=== PATIENT | female | born 1950 | race Caucasian/White ===

== ENCOUNTER 2017-12-02 20:16 | Emergency (ER) | payer BC ==
[~2017-12-02] VITALS: Ht 157.5 cm; Wt 73.3 kg
[2017-12-02 21:03] LABS: HEMATOCRIT 39.2 % (36.0-46.0); HEMOGLOBIN 13.1 G/DL (11.9-15.5); MCH 28.9 PG (29.0-34.0); MCHC 33.4 G/DL (30.0-36.0); MCV 86.5 FL (83-99); PLATELET COUNT 261 K/uL (156-360); RBC DIS.WIDTH-SD 38.3 % (39-53); RED BLOOD COUNT 4.53 M/uL (3.80-5.20); WHITE BLOOD COUNT 7.7 K/uL (4.1-10.2)
[2017-12-02 21:09] LABS: CHLORIDE 109 mEq/L (99-109); POTASSIUM 4.9 mEq/L (3.7-5.4); SODIUM 141 mEq/L (136-147)
[2017-12-02 21:11] LABS: GLUCOSE 191 mg/dL (70-99); TOTAL PROTEIN 7.3 g/dL (6.4-8.3)
[2017-12-02 21:13] LABS: TOTAL BILIRUBIN 0.5 mg/dL (0.0-1.0)
[2017-12-02 21:14] LABS: ALKALINE PHOSPHATASE 72 IU/L (3-129)
[2017-12-02 21:15] LABS: CREATININE 1.2 mg/dL (0.6-1.3); GFR ESTIMATE (CALCULATED) 48 mL/min/
[2017-12-02 21:16] LABS: AST (GOT) 17 IU/L (2-34); UREA NITROGEN (BUN) 22 mg/dL (9-23)
[2017-12-02 21:17] LABS: ALT (GPT) 16 IU/L (3-49)
[2017-12-02 21:18] LABS: LIPASE 17 U/L (1.0-51.0)
[2017-12-02 21:47] LABS: APPEARANCE SL.HAZY ((CLEAR)); BILIRUBIN NEGATIVE; BLOOD NEGATIVE; COLOR YELLOW ((YELLOW)); GLUCOSE (STRIP) 150; KETONES NEGATIVE; LEUKOCYTES TRACE; NITRITE NEGATIVE; PROTEIN (STRIP) NEGATIVE; SPECIFIC GRAVITY 1.016 (1.000-1.030); UROBILINOGEN 0.2 MG/DL (0.2-1.0)
[2017-12-02 21:54] LABS: BACTERIA 1+ /HPF; EPITHELIAL CELLS RARE /HPF; MUCUS NONE SEEN /LPF; RED BLOOD CELLS 0-5 /HPF (0-5); UCUL ADDED? YES
[2017-12-02] MEDS ORDERED: MOTRIN600 MG PO (22:02)
[2017-12-02] MEDS ORDERED: PERCOCET 5/31 TABLET PO (22:02)
[2017-12-02] MEDS ORDERED: ZOFRAN ODT4 MG PO (22:02)
[2017-12-02 23:04] VITALS: BP 151/91
== END 2017-12-02 23:05 | disposition home or self-care (01) ==
LOC: EME 20:16
DX: N13.2 Hydronephrosis with renal and ureteral calculous obstruction (principal)
CPT/HCPCS: 74176; 80053; 81003; 83690; 85027; 87086; 99281; 99284; J1885